=== PATIENT | male | born 1975 | race Caucasian/White ===

== ENCOUNTER 2017-03-19 19:40 | Day surgery (SDC) | payer OTHER ==
[~2017-03-19] VITALS: Ht 182.9 cm; Wt 98.0 kg
--- NOTE | ~2017-03-19 | OR ---
PATIENT'S NAME: GEETHA BUSTILLOS [facility] AGE: 41 Y [address] ROOM: [address] [address] [place] [facility] [place]: 03/19/2017 OR/Procedure Report DISCHARGE DATE: FAMILY PHYSICIAN: PHYSICIAN, UNKNOWN ATTENDING PHYSICIAN: Norberto Alonzo SURGEON: Norberto Alonzo MD NURSE CLINICAL: Tierra Driscoll, Java Portal Developer 3. DATE OF PROCEDURE: 03/19/2017 PREOPERATIVE DIAGNOSIS: Acute appendicitis. POSTOPERATIVE DIAGNOSIS: Acute appendicitis. PROCEDURE: Laparoscopic appendectomy ANESTHESIA: General with 15 mL 0.5% Marcaine. SPECIMENS: Appendix with acute inflammatory changes. ESTIMATED BLOOD LOSS: Minimal. COMPLICATIONS: None. INDICATIONS: The patient is a 41-year-old gentleman with a less than 24-hour history of abdominal pain settled into the right-side of his abdomen, mildly elevated white count 14,000, and normal urinalysis. His abdomen had mild guarding in the right lower quadrant with deep palpation. His CT scan confirmed the clinical suspicion of early appendicitis. DESCRIPTION OF PROCEDURE: After informed consent, the patient was taken to the operating room, after general endotracheal anesthesia, the patient's abdomen was prepped and draped into a sterile field. A time-out was performed. We confirmed the patient, planned procedure, and administration of preop antibiotics accomplished. We then began with injecting local anesthetic prior to each incision. The first one made below the umbilicus, carried down to identify the anterior fascia through which a Veress needle inserted, saline test performed, and then pneumoperitoneum created. A 5-mm trocar and laparoscope inserted safely. Under direct vision, the right upper quadrant 5- mm trocar and the midline suprapubic 12-mm trocar were placed. We traced the tenia of the cecum to its base. We identified the appendix and had acute inflammatory changes especially the distal 1/3rd. There was no evidence of rupture, we elevated it up, divided the mesoappendix with 2 loads of Endo 35 CONSTANCE stapler. We then divided the appendiceal stump across normal tissue with the Endo-CONSTANCE 35 stapler. We placed the appendix in EndoCatch bag and brought it out through the 12-mm port site. We irrigated the staple lines in the PATIENT'S NAME: GEETHA BUSTILLOS [facility] AGE: 41 Y [address] ROOM: [address] [address] [place] [facility] [place]: 03/19/2017 OR/Procedure Report DISCHARGE DATE: FAMILY PHYSICIAN: PHYSICIAN, UNKNOWN ATTENDING PHYSICIAN: Norberto Alonzo right lower quadrant until clear. The trocars were removed. The pneumoperitoneum released. The 12-mm fascia defect closed with 0 Vicryl and skin closed with subcuticular 4-0 Vicryl. Steri-Strips and sterile dressings applied. The patient tolerated the procedure well and transferred to recovery room in stable condition. NORBERTO ALONZO MD WTMae/modl /[id number] d: 03/20/17 0132 t: 03/23/17 0912, OPERATIVE SUMMARY
--- NOTE | ~2017-03-19 | HP ---
PATIENT'S NAME: GEETHA BUSTILLOS [facility] AGE: 41 Y [address] ROOM: [place] [address] [place] [facility] [place]: 03/19/2017 History & Physical DISCHARGE DATE: FAMILY PHYSICIAN: PHYSICIAN, UNKNOWN ATTENDING PHYSICIAN: Hernan Alonzo DATE OF SERVICE: CHIEF COMPLAINT: Abdominal pain. HISTORY OF PRESENT ILLNESS: The patient said that he had onset of abdominal pain this morning, centrally located, that has progressively got worse throughout the day. He had one episode of diarrhea. He denies any nausea or vomiting or decreased appetite. He states last weekend, he felt like he had some kind of stomach bug with vomiting and nausea, but it resolved after 24 hours, and he has been fine since then. He denies any fevers, however, does have reports of subjective chills. He went to an outside facility (or Urgent Care), and was sent over to [facility] for further evaluation. He underwent a CT exam, which shows acute appendicitis. His white cell count was elevated at 12,000. PAST MEDICAL HISTORY: GERD. PAST SURGICAL HISTORY: ACL repair. SOCIAL HISTORY: Non-smoke, social alcohol FAMILY HISTORY: Noncontributory. ALLERGIES: NO KNOWN MEDICATION ALLERGIES. MEDICATIONS: Generic equivalent of Prilosec. REVIEW OF SYSTEMS: GENERAL: Positive for chills. Negative for weight loss. HEENT: No acute vision changes. No difficulty swallowing. PULMONARY: No cough. CARDIAC: No chest pain. PATIENT'S NAME: GEETHA BUSTILLOS [facility] AGE: 41 Y [address] ROOM: [place] [address] [place] [facility] [place]: 03[place]19/2017 History & Physical DISCHARGE DATE: FAMILY PHYSICIAN: PHYSICIAN, UNKNOWN ATTENDING PHYSICIAN: Hernan Alonzo ABDOMEN: See HPI. MUSCULOSKELETAL: No decreased range of motion. No stiff joints. Neuro: No focal deficits. PHYSICAL EXAMINATION: VITAL SIGNS: WNL; Temperature normal. GENERAL: Alert and oriented. No apparent distress. HEENT: PERRL, EOMI. Mucous membranes dry. No adenopathy. PULMONARY: Clear to auscultation in all matthews. CARDIAC: Regular rate and rhythm. ABDOMEN: Bowel sounds positive x4 quadrants. Tenderness in the right lower quadrant. Positive McBurney's. Negative psoas and negative obturator's. Negative Rovsing. Negative rebound. Negative guarding. MUSCULOSKELETAL: Peripheral pulses x4. No edema. NEURO: No focal deficits. ASSESSMENT AND PLAN: A 41-year-old male, brought to [facility] for acute appendicitis. 1. Acute appendicitis: We will plan for laparoscopic appendectomy at this time. KODY MILLER MD RESIDENT FOR HERNAN ALONZO MD MR/modl /[id number] D: 034 T: 914 HISTORY & PHYSICAL
[2017-03-19] MEDS ORDERED: PRILOSEC20 MG PO (22:15)
[2017-03-20] MEDS ORDERED: NORCO 5-325 TA1 EACH PO (07:18)
== END 2017-03-20 09:45 | disposition disaster alternative care site (69) ==
LOC: GMSU 19:40 → GMED 19:40 → GSDC 19:40 → GMSU 21:38 → GMED 21:38 → GMSU 03-20 09:45
PROC: 0DTJ4ZZ Resection of Appendix, Percutaneous Endoscopic Approach (ICD-10-PCS; principal; 2017-03-19)
DX: K35.80 Unspecified acute appendicitis (principal); K21.9 Gastro-esophageal reflux disease without esophagitis; J45.909 Unspecified asthma, uncomplicated; Z98.890 Other specified postprocedural states

== ENCOUNTER → 2017-03-19 | Outpatient (CLI) | payer OTHER ==
[~2017-03-19] MED LIST: NORCO 5-325 TA1 EACH PO; PRILOSEC20 MG PO
== END | disposition disaster alternative care site (69) ==
LOC: GRAD 18:31
DX: R10.31 Right lower quadrant pain (principal); K80.20 Calculus of gallbladder without cholecystitis without obstruction; M43.06 Spondylolysis, lumbar region; R16.1 Splenomegaly, not elsewhere classified
CPT/HCPCS: J1335; J7120; Q9967